=== PATIENT | male | born 1995 | race Caucasian/White ===

== ENCOUNTER 2023-10-30 12:29 | Emergency (ER) | payer SELFPAY ==
[2023-10-30 12:30] VITALS: BP 150/92; PULSE 88; RESP 16; TEMP 36.2; O2SAT 99; BMI 32.4
--- NOTE | 2023-10-30 12:38 | EX.ED.UPPERE ---
HPI History of Present Illness Chief Complaint: Upper Extremity Injury Detail of Chief Complaint: Fall with injury to right elbow Informant: patient Narrative Narrative: Patient presents to the emergency department with complaint of a fall and injury to the right elbow. Patient states that he was at work when he tripped and fell onto the hard top of the parking lot injuring his right elbow. He is right-hand dominant. He denies any other injuries. [facility] Medical History (Updated 10/30/23 @ 13:[address] Isaiah Reed, DO) Past heart attack Home Medications hydrocodone-acetaminophen 5-325mg 5mg-325mg 1 tab PO Q4H PRN PRN Pain 2 days #15 TABLETS 10/30/23 [Rx Last Taken Unknown] Allergy/AdvReac Type Severity Reaction Status Date / Time No Known Allergies Allergy Verified 10/30/23 12:30 Family History no significant family his Social History Smoking Status: Current every day smoker tobacco type: smokeless tobacco ROS ROS ED Review of Systems ROS Unobtainable: other Constitutional Constitutional ED: Reports lethargy; Denies chills, fever(s), sweats or weight loss Eyes Eyes: Denies blurry vision, change in vision or diplopia ENT ENT ED: Denies rhinorrhea or sore throat Cardiovascular Cardiovascular: Denies chest pain, orthopnea or racing heartbeat Respiratory/Chest Respiratory/Chest: Denies cough, dyspnea, dyspnea on exertion, orthopnea or sputum Gastrointestinal Gastrointestinal: Denies abdominal pain, diarrhea, nausea or vomiting Genitourinary Genitourinary ED: Denies dysuria, hematuria or urinary frequency Musculoskeletal Musculoskeletal: Reports other Details: Right elbow injury/pain ; Denies arthralgias, back pain, myalgias or neck pain Integumentary Denies abscess, Abrasions or rash Neurologic Neurologic: Denies headache(s) or weakness Psychiatric Psychiatric: Denies anxiety, depression or suicidal thoughts Endocrine Endocrinology: Denies polydipsia, polyphagia or polyuria Hematologic/Lymphatic Hematologic/Lymphatic: Denies easy bleeding, easy bruising or lymphadenopathy Allergic/Immunologic Allergic/Immunologic ED: Denies mouth swelling, tongue swelling or urticaria EXAM Physical Exam Const Vital Signs: 10/30/23 12:30 Temperature 97.1 F L Temperature Source Temporal Pulse Rate 88 Respiratory Rate 16 Blood Pressure 150/92 H Blood Pressure Mean 111 Pulse Ox 99 Oxygen Delivery Method Room Air Positive well nourished and well developed General Appearance ED: well developed and NAD HEENT Reports TM's clear and moist mucous membranes normocephalic and atraumatic; Negative for trauma or tenderness Tympanic Membrane ED: Yes TM's clear Eyes PERRL and EOMs intact bilaterally General Eye ED: Negative for pale conjunctiva or scleral icterus Neck no lymphadenopathy, supple and no JVD General: Negative for tenderness Chest Wall inspection of chest normal and palpation of chest normal Chest: Negative for tenderness Resp normal respiratory effort and clear to auscultation bilaterally Effort and Inspection: Negative for respiratory distress or pain with movement Auscultation: Negative for rhonchi, wheezes or diminished lung sounds Cardio regular rate, regular rhythm, S1 normal heart sound, S2 normal heart sound and no murmurs Peripheral Pulses: pulses 2+ throughout GI normal to inspection, nondistended, normoactive bowel sounds, soft to palpation, non-tender, non-distended and no masses Back/Spine no CVA tenderness and no thoracic nor lumbar tenderness Extremity Extremity Narrative: Right elbow-patient has diffuse soft tissue swelling over the posterior aspect of the elbow. He has limited range of motion in extension secondary to pain. He is neurovascular intact distally. He has diffuse tenderness about the elbow. He has some pain with pronation and supination. General Extremety ED: Negative for edema General Extremity: Negative for edema Neuro oriented x3, CN's II-XII intact bilaterally, no sensory deficits noted and gait normal Sensorium / Orientation: awake, alert, oriented to person, oriented to place and oriented to time Motor Exam: strength 5/5 throughout and strength abnormal Psych mental status grossly normal Skin no rashes or lesions noted and no wounds MDM MDM MDM Narrative Medical decision making narrative: Patient presents with injury to her right elbow. X-rays obtained showed a fracture of the proximal olecranon/ulna. Discussed case with orthopedic surgeon Dr. Adorno who recommended long arm splint and follow-up in the office as this will likely require surgery. I will start patient on hydrocodone for pain. He will be given a sling. He is instructed to ice and elevate the extremity. I did place patient in a long-arm splint fabricated by myself. Radiography Diagnostic Testing: Three-view x-rays of the right elbow obtained showed fracture of the olecranon/proximal ulna. Discharge Plan Triage Chief Complaint: Upper Extremity Injury ED Provider: Isaiah Reed Dx/Rx/DC Orders Clinical Impression: Elbow fracture Instructions: ED Elbow Fracture, ED Fracture, Upper Extremity Prescriptions: New hydrocodone-acetaminophen [hydrocodone-acetaminophen] 5-325 mg tablet 1 tab PO Q4H PRN PRN (Reason: Pain) 2 Days Qty: 15 0RF Primary Care Provider: Care Physician,No Primary Referrals: Júnior Adorno DO [Med Staff - Active Staff] - 3-5 Days NOT,DEFINED [Non-Staff] - Disposition Disposition: Home, Self Care Discharge Date/Time: 10/30/23 14:01
--- NOTE | 2023-10-30 12:45 | RAD_ITS ---
STUDY: X-RAY - RIGHT ELBOW REASON FOR EXAM: Male, 28 years old. Injury. TECHNIQUE: 4 views of the right elbow. COMPARISON: None. FINDINGS: There is a complete fracture of the olecranon, with 2 cm distraction. Normal visualized humerus and radius. Normal radiocapitellar articulation. There is soft tissue swelling along the posterior aspect of the olecranon. RAD/Elbow min 3 Views IMPRESSION: Complete fracture of the olecranon, with 2 cm distraction. Soft tissue swelling along the posterior aspect of the olecranon. Electronically Signed: Rick Watson MD at 13:03 EDT ,
[2023-10-30] MEDS: HYDROcodone Bitartrate/Apap 5/325 Tablet PO (13:10)
[2023-10-30 14:00] VITALS: BP 150/92; PULSE 88; RESP 16; TEMP 36.2; O2SAT 99
== END 2023-10-30 14:01 | disposition home or self-care (01) ==
PROVIDERS: Emergency Provider Emergency Medicine; Visit Provider Emergency Medicine
DX: S42.401A Unspecified fracture of lower end of right humerus, initial encounter for closed fracture (principal); F17.290 Nicotine dependence, other tobacco product, uncomplicated; Y92.481 Parking lot as the place of occurrence of the external cause; W01.0XXA Fall on same level from slipping, tripping and stumbling without subsequent striking against object, initial encounter
CPT/HCPCS: 73080; 99283

== ENCOUNTER 2023-11-07 13:55 | Day surgery (SDC) | payer SELFPAY ==
[2023-11-07] VITALS (10 sets, daily range): BP systolic 116–147; BP diastolic 73–99; PULSE 59–74; RESP 16; TEMP 36.2–37; O2SAT 92–100; BMI 32.2
[2023-11-07] MEDS: Lactated Ringers 1,000 ML 15 ML IV (14:27)
--- NOTE | 2023-11-07 14:35 | RAD_ITS ---
STUDY: X-RAY - RIGHT ELBOW REASON FOR EXAM: Male, 28 years old. ORIF OLECRANON FRACTURE TECHNIQUE: 2 fluoroscopic spot films of the right elbow. COMPARISON: Right elbow radiographs dated 10/30/2023. FINDINGS: There has been realignment of the previously seen olecranon fracture with new ORIF hardware including metallic plate and multiple fixation screws. Normal visualized humerus and radius. Normal radiocapitellar articulation. RAD/Elbow 2 Views IMPRESSION: Realignment of the previously seen olecranon fracture with new ORIF hardware. Electronically Signed: Rick Watson MD at 8:43 EDT ,
[2023-11-07] MEDS: Cefazolin 2 GM in 0.9% Normal Saline (100mL Bag) 100 ML IV (15:08)
[2023-11-07] MEDS: Lidocaine 1% /Epi 1:100 (20ml) 20 ML Vial (16:18)
--- NOTE | 2023-11-07 16:52 | PCM.OPRPT ---
Report of Operation Date of Procedure: 11/07/23 Description of Surgical Findings:: Preoperative diagnosis: Right displaced olecranon fracture Postoperative diagnosis: Right displaced olecranon fracture Procedure: Open reduction internal fixation right olecranon Surgeon: Júnior Adorno DO [employer] Presenter: Indu Oconnell PA-C Anesthesia: General LMA Bull Rider: Raphael Wren CRNA Estimated blood loss: 25 cc Urine output: None recorded IV fluids: Per anesthesia record Packing/drains: None Specimen: None Complications: None apparent Implants: Synthes 3.5 mm LCP olecranon plate right 4-hole Indications: This is a [id number] 28-year-old male who sustained a fall onto a flexed right elbow while at work on 10/30/2023. He was seen in the emergency department that day at [facility]. X-rays revealed a displaced right olecranon fracture. This was a closed injury. He was splinted and followed up in our office. I recommend surgical intervention in the form of right olecranon open reduction internal fixation. I reviewed the risks, benefits, alternatives to procedure with the patient. Risks included but were not limited to bleeding, infection, loss of life or limb, need for additional surgery, persistent pain, nonhealing bone or wounds, neurovascular injury, symptomatic hardware, need for hardware removal, stiffness, DVT or PE. Patient expressed understanding of these risks and wished to proceed with surgery. Description of procedure: Patient was identified in the preoperative holding area by name, medical record number, and date of . The operative extremities marked. All questions were answered to the patient's satisfaction. At time of his procedure, patient was brought to the operative suite positioned supine a sterile operating table. General anesthesia was induced and LMA was placed. Patient was then positioned in the lateral decubitus position with right side up. He was held in place with a beanbag. All bony prominences were well-padded. Pillows were placed beneath and between the legs. The table was spun 90 degrees. We prepped and draped the right upper extremity in normal, sterile orthopedic fashion. We performed timeout with all parties in attendance in agreement with the side, site, and operation to be performed. No concerns were voiced which proceed with surgery. 2 g Ancef was administered IV prior to the incision by anesthesia staff. I first exsanguinated the right upper extremity with Esmarch bandage. Tourniquet was inflated to 250 mmHg which remained up for approximately 45 minutes. Esmarch was removed. Standard dorsal approach to the olecranon was planned. I made a curvilinear incision approximately 10 cm in length centered over the olecranon fracture. The incision was curved to avoid a tattoo but still allowed adequate access to the olecranon. Full-thickness skin flaps were developed down the level of the fascia. Fascia had been interrupted by the fracture and was easily identified. I open the fascia in line with the subcutaneous border of the ulna to the triceps fascia. Periosteum was then cleared from the edges of the fracture. Hematoma was evacuated. I thoroughly lavaged the fracture site. I then placed a 2.5 mm drill hole through the radial side of the distal segment to allow for our 90 degree clamp insertion. This was then applied with excellent compression and anatomic reduction of the fracture site. Acceptable reduction was confirmed on orthogonal fluoroscopy. I then selected a 4-hole 3.5 mm olecranon plate. This was held in place with K wires provisionally. I then compressed the plate to bone with a cortical screw in the proximal segment. The proximal cluster was then filled with unicortical locking screws. I then placed an eccentric bicortical cortex screw in the oblong hole of the plate distally. This compressed the plate to bone and achieved compression across the fracture site. An additional compression screw was placed eccentrically in the most distal hole of the plate. A final bicortical cortical screw was placed in the distal segment. Clamp was removed. The elbow was brought through range of motion. The fracture was stable. Orthogonal fluoroscopy confirmed appropriate reduction, hardware placement and sizing. Wound was copiously irrigated with normal saline solution. Tourniquet is deflated. Hemostasis was achieved with Bovie cautery. I reapproximated the fascia with interrupted [id number] 0 Vicryl suture. Dermis was reapproximated with buried 3-0 Vicryl suture. Skin was finally reapproximated with erin. Bulky sterile compression dressing was applied as well as a well-padded long-arm posterior splint. Skin edges were anesthetized with 20 cc total 1% lidocaine with epinephrine 1: 100,000 prior to closure. Patient tolerated procedure well without apparent complication. He was repositioned supine and safely extubated the operative suite. He was transferred to his [facility] subsequently PACU in stable condition. Postoperative plan: Nonweightbearing operative extremity. Maintain splint until follow-up. Ice the operative site. Narcotic pain prescription provided as an outpatient. X-rays in splint upon arrival at first follow-up. Follow-up in 2 weeks for x-rays, wound check and staple removal. Plan to initiate early range of motion and transition to simple sling in 2 weeks. Will plan for physical therapy for early range of motion. No strengthening until fracture consolidation is seen on x-rays. Tylenol and ibuprofen encouraged.
--- NOTE | 2023-11-07 17:39 | SUR.PHASEI ---
patient did not receive block. decision per dr. pratt d/t anatomy on ultrasound assessment. patient aware of decision.
[2023-11-07] MEDS: Oxycodone/Apap 5/325 Tablet PO (18:20)
== END 2023-11-07 19:13 | disposition home or self-care (01) ==
LOC: SDC 13:58 → AC 13:59
PROVIDERS: Referring Provider Student in an Organized Health Care Education/Training Program; Visit Provider Student in an Organized Health Care Education/Training Program
PROC: (CPT 24685; principal; 2023-11-07 15:15)
DX: S52.021A Displaced fracture of olecranon process without intraarticular extension of right ulna, initial encounter for closed fracture (principal); E66.9 Obesity, unspecified; Z86.16 Personal history of COVID-19; Z87.891 Personal history of nicotine dependence; Z68.32 Body mass index [BMI] 32.0-32.9, adult; W19.XXXA Unspecified fall, initial encounter
CPT/HCPCS: 24685; 01740; 73070; 76000; C1713; J7120; J2405